=== PATIENT | male | born 1950 | race Caucasian/White ===

== ENCOUNTER 2018-07-09 13:25 | Emergency (ER) | payer MEDICARE, BC ==
[~2018-07-09] VITALS: Ht 177.8 cm; Wt 77.0 kg
--- NOTE | 2018-07-09 13:46 | NUR ---
PATIENT DENIES ANY INCONTINENCE, SPOKE TO DR VENTURA ABOUT FALL AND PATIENT PRESENTAION.
[2018-07-09] MEDS ORDERED: morphine 4 MG/ML inj SYRINge IV ONE (14:55)
[2018-07-09] MEDS ORDERED: ondansetron/PF 4mg/2ml inj IV ONE (14:55)
[2018-07-09 16:15] LABS: BASOPHILS % (AUTO) 0.4 % (0-1); EOSINOPHILS # (AUTO) 1.3 X10'3 (0-0.9); EOSINOPHILS % (AUTO) 20.7 % (0-6); HEMATOCRIT 43.1 % (42.0-52.0); HEMOGLOBIN 14.4 g/dl (14.0-17.9); LYMPHOCYTES # (AUTO) 1.3 X10'3 (1.1-4.8); LYMPHOCYTES % (AUTO) 22.1 % (21-51); MEAN CORPUSCULAR HEMOGLOBIN 30.2 PG (27.0-31.0); MEAN CORPUSCULAR HGB CONC 33.3 g/dL (33.0-36.5); MEAN CORPUSCULAR VOLUME 90.6 FL (78-98); MONOCYTES # (AUTO) 0.5 X10'3 (0-0.9); NEUTROPHILS % (AUTO) 48.8 % (42-75); PLATELET COUNT 200 X10'3 (140-440); RED BLOOD COUNT 4.76 X10'6 (4.70-6.10); RED CELL DISTRIBUTION WIDTH 14.1 % (11.5-14.5); WHITE BLOOD COUNT 6.1 X10'3 (4.5-11.0)
[2018-07-09 16:28] VITALS: BP 132/78
--- NOTE | 2018-07-09 16:28 | NUR ---
PT IN NO DISTRESS. STATES HE IS FEELING BETTER.
[2018-07-09 16:32] LABS: ALANINE AMINOTRANSFERASE 31 U/L (12-78); ALBUMIN 3.6 G/DL (3.4-5.0); ALBUMIN/GLOBULIN RATIO 1.2 (1.1-1.5); ALKALINE PHOSPHATASE 73 IU/L (46-116); ANION GAP 8 (8-16); ASPARTATE AMINO TRANSFERASE 20 U/L (10-37); BILIRUBIN,TOTAL 0.5 MG/DL (0.1-1.0); BLOOD UREA NITROGEN 10 MG/DL (7-18); BUN/CREATININE RATIO 9.4 (5.4-32.0); CALCIUM 8.6 MG/DL (8.5-10.1); CHLORIDE 107 MMOL/L (99-107); CREATININE 1.06 MG/DL (0.60-1.10); GLUCOSE 90 MG/DL (70-104); SODIUM 141 MMOL/L (135-145); TOTAL CARBON DIOXIDE 25.8 MMOL/L (24-32); TOTAL PROTEIN 6.7 G/DL (6.4-8.2); eGFR 70 ML/MIN
[2018-07-09] MEDS ORDERED: HYDR-4383 PO (16:57)
[2018-07-09] MEDS ORDERED: ketorolac trometh. 30mg/ml inj. IV ONE (17:00)
== END 2018-07-09 17:12 | disposition home or self-care (01) ==
LOC: ER 13:25
DX: M54.5 Low back pain (principal); M25.522 Pain in left elbow; M79.662 Pain in left lower leg; R51 Headache; G89.29 Other chronic pain; Z79.899 Other long term (current) drug therapy; Z98.890 Other specified postprocedural states; W17.89XA Other fall from one level to another, initial encounter; Y93.89 Activity, other specified; Y92.89 Other specified places as the place of occurrence of the external cause; Y99.8 Other external cause status
CPT/HCPCS: 36415; 70450; 71250; 72100; 73080; 73590; 74176; 80053; 85025; 96374; 96375; 99284; J1885; J2270; J2405